=== PATIENT | male | born 1980 | race Caucasian/White ===

== ENCOUNTER 2017-01-15 13:02 | Emergency (ER) | payer BC ==
--- NOTE | 2017-01-15 13:33 | ED ---
Abdominal Pain HPI - General Chief Complaint: Abdominal Pain Stated Complaint: abdominal pain-sent by Urgent Care Time Seen by Provider: 01/15/17 13:15 Source: patient, RN notes reviewed Mode of arrival: ambulatory - History of Present Illness Initial Comments: Chief complaint and history of present illness is a 36-year-old male was coming here after being seen at the urgent care clinic. The patient reports yesterday developed some abdominal cramping and spasm started in the epigastric region and go down to the lower abdomen. No nausea no vomiting no diarrhea. He has taken Pepto-Bismol. Stool has become dark since taking the Pepto. Patient has a past history of irritable bowel syndrome. Also GERD. Surgeries include appendectomy. - Related Data Previous Rx's Medication Instructions Recorded Hyoscyamine Sulfate [Levsin] 0.125 mg PO QID PRN #20 tablet 01/15/17 Allergies Allergy/AdvReac Type Severity Reaction Status Date / Time No Known Allergies Allergy Verified 01/15/17 13:36 Review of Systems ROS Statement: Those systems with pertinent positive or pertinent negative responses have been documented in the HPI. Review of systems. No headache chest pain shortness of breath GI/ problems this time. The patient has noted above has had some abdominal cramping or spasms as he describes it. Starts in the epigastric region and goes down the lower abdomen. He has had normal bowel movements no trouble urinating. He reports this started after having had pizza 2 nights ago. Past medical problems significant for irritable bowel syndrome for the past 10-15 years. GERD. Surgeries appendectomy. Family history father of an [place] of only 42. Mother has had story for strokes. Patient has no ALLERGIES she does smoke medical marijuana which she reports makes him feel significantly better once or twice per week. He quit smoking cigarettes 2 years ago. Denies alcohol use. 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 Which would've been 3 days ago. ROS Other: All systems not noted in ROS Statement are negative. Past Medical History Past Medical History: GERD/Reflux Additional Past Medical History / Comment(s): IBS, liver hematoma dx last spring History of Any Multi-Drug Resistant Organisms: None Reported Past Surgical History: Appendectomy Past Psychological History: No Psychological Hx Reported Smoking Status: Never smoker Past Alcohol Use History: None Reported Past Drug Use History: Marijuana General Exam - General Exam Comments Initial Comments: General: The patient is awake and alert, in no distress, and does not appear acutely ill. Complains of on-again off-againintermittent abdominal spasms. 3-4 per hour yesterday less than one time per hour today. Vital signs showed a temperature 97.6 pulse 74 story rate 18 pulse ox on percent room air blood pressure 144/84. Elevated systolic diastolic noted. The patient was advised to talk to his family physician and get rechecked within the next 1-4 weeks.Eye: Pupils are equal, round and reactive to light, extra-ocular movements are intact ; there is normal conjunctiva bilaterally. No signs of icterus. Ears, nose, mouth and throat: There are moist mucous membranes and no oral lesions. Neck: The neck is supple, there is no tenderness , no anterior cervical lymphadenopathy. Cardiovascular: There is a regular rate and rhythm. No murmur, rub or gallop is appreciated. Respiratory: Lungs are clear to auscultation, respirations are non-labored, breath sounds are equal. No wheezes, stridor, rales, or rhonchi. Gastrointestinal: Soft, non-distended, slight to minimal tenderness to lower abdomen without masses or organomegaly noted. There is no rebound or guarding present. No CVA tenderness. Bowel sounds are unremarkable. Denying any spasms at this time. Back: No complaint of any back pain. Musculoskeletal: Normal ROM, no tenderness, There is no pedal edema. There is no calf tenderness or swelling. Sensation intact. Pulses equal bilaterally 2+. Neurological: No evidence of a complaints of any neuro deficits. No numbness no tingling. Skin: Skin is warm and dry patient denies any rashes. Course Vital Signs 01/15/17 13:11 Temperature 97.6 F Pulse Rate 74 Respiratory 18 Rate Blood Pressure 144/84 O2 Sat by Pulse 100 Oximetry Medical Decision Making - Medical Decision Making Medical decision making; EKG was done and reviewed at 1341 showing normal sinus rhythm no acute ST elevation no ectopy no ischemic changes. Rate 72 eye was 114 QRS is 98 QT 376 and a QTc of 411. Dr. Casey The patient's white count is 9.1 hemoglobin 18 hematocrit of 52. The patient will be advised to have these numbers repeated. If it remains high and advised to follow-up with family physician possible homoeopath for further evaluation. Potassium is 4.3 with a BUN of 11 creatinine 0.8 GFR greater than 60. Urine is clean no signs of infection. Amylase lipase within normal limits. , X-rays of the abdomen were done and reviewed by radiologist, his impression is; there is some possibility of bowel gas. The visualized gas is noted in the nondistended small and large bowel loops as well is nondistended stomach. Occasional pelvic phleboliths seen. Lung bases are clear. No pneumoperitoneum identified. Visualized osseous structures are intact. Impression; overall a nonspecific favor nonobstructive bowel gas pattern. As read by Dr. betancur The patient was given one tablet of Levsin emergency room. He was told to call follow-up with his family physician concerning his hemoglobin. Told increase his fluids. Use Levsin one every 12 hours when necessary abdominal cramps. Stay away from foods that tend to irritate his stomach historically. Return emergency room as needed - Lab Data Result diagrams: 01/15/17 13:34 01/15/17 13:34 Lab Results 01/15/17 01/15/17 01/15/17 Range/Units 13:34 13:34 13:34 WBC 9.1 (3.8-10.6) k/uL RBC 6.26 H (4.30-5.90) m/uL Hgb 18.0 H (13.0-17.5) gm/dL Hct 52.6 (39.0-53.0) % MCV 84.0 (80.0-100.0) fL MCH 28.7 (25.0-35.0) pg MCHC 34.2 (31.0-37.0) g/dL RDW 12.7 (11.5-15.5) % Plt Count 244 (150-450) k/uL Neutrophils % 65 % Lymphocytes % 25 % Monocytes % 5 % Eosinophils % 1 % Basophils % 2 % Neutrophils # 5.9 (1.3-7.7) k/uL Lymphocytes # 2.2 (1.0-4.8) k/uL Monocytes # 0.5 (0-1.0) k/uL Eosinophils # 0.1 (0-0.7) k/uL Basophils # 0.2 (0-0.2) k/uL Sodium 142 (137-145) mmol/L Potassium 4.3 (3.5-5.1) mmol/L Chloride 101 (98-107) mmol/L Carbon Dioxide 29 (22-30) mmol/L Anion Gap 12 mmol/L BUN 11 (9-20) mg/dL Creatinine 0.80 (0.66-1.25) mg/dL Est GFR (MDRD) Af Amer >60 (>60 ml/min/1.73 sqM) Est GFR (MDRD) Non-Af >60 (>60 ml/min/1.73 sqM) Glucose 89 (74-99) mg/dL Calcium 9.8 (8.4-10.2) mg/dL Total Bilirubin 1.0 (0.2-1.3) mg/dL AST 21 (17-59) U/L ALT 40 (21-72) U/L Alkaline Phosphatase 72 (38-126) U/L Total Protein 8.4 H (6.3-8.2) g/dL Albumin 5.0 (3.5-5.0) g/dL Amylase 74 (30-110) U/L Lipase 56 (23-300) U/L Urine Color Yellow Urine Appearance Clear (Clear) Urine pH 5.5 (5.0-8.0) Ur Specific [place] 1.020 (1.001-1.035) Urine Protein Negative (Negative) Urine Glucose (UA) Negative (Negative) Urine Ketones Negative (Negative) Urine Blood Negative (Negative) Urine Nitrate Negative (Negative) Urine Bilirubin Negative (Negative) Urine Urobilinogen <2.0 (<2.0) mg/dL Ur Leukocyte Esterase Negative (Negative) Disposition Clinical Impression: Irritable bowel syndrome without diarrhea Disposition: HOME SELF-CARE Condition: Fair Instructions: Irritable Bowel Syndrome (ED) Additional Instructions: Stay on proper diet. Follow-up with your family physician concerning elevated hemoglobin hematocrit. Suggested to get a repeat blood test in this matter. As well as getting a blood pressure rechecked several times this week at approximately the same time to make sure he don't fact have early hypertension. Take Levsin as directed Prescriptions: Hyoscyamine Sulfate [Levsin] 0.125 mg PO QID PRN #20 tablet PRN Reason: Abdominal cramps Time of Disposition: 14:31
[2017-01-15 13:54] LABS: Appearance,Urine Clear (Clear); Bilirubin,Urine Negative (Negative); Glucose,Urine (UA) Negative (Negative); Ketones,Urine Negative (Negative); Leukocyte Esterase,Urine Negative (Negative); Nitrite,Urine Negative (Negative); PH, Urine 5.5 (5.0-8.0); Protein,Urine Negative (Negative); UA Billing (MACRO vs. MICRO) CHEM; Urobilinogen,Urine <2.0 mg/dL (<2.0)
[2017-01-15 13:57] LABS: Basophils # (A) 0.2 k/uL (0-0.2); Basophils % (A) 2 %; CH 29.8; CHCM 35.6; Eosinophils # (A) 0.1 k/uL (0-0.7); Eosinophils % (A) 1 %; HCT 52.6 % (39.0-53.0); HDW 2.71; Luc # (Auto) 0.29; Luc % (Auto) 3; Lymphocytes # (A) 2.2 k/uL (1.0-4.8); Lymphocytes % (A) 25 %; MCH 28.7 pg (25.0-35.0); MCHC 34.2 g/dL (31.0-37.0); Mean Platelet Volume 6.9; Monocytes # (A) 0.5 k/uL (0-1.0); Monocytes % (A) 5 %; Neutrophils # (A) 5.9 k/uL (1.3-7.7); Neutrophils % (A) 65 %; RBC 6.26 m/uL (4.30-5.90); RDW 12.7 % (11.5-15.5); WBC 9.1 k/uL (3.8-10.6); WBC (Perox) 9.13
[2017-01-15 14:07] LABS: ALT 40 U/L (21-72); AST 21 U/L (17-59); Alkaline Phosphatase 72 U/L (38-126); Amylase 74 U/L (30-110); Anion Gap 12 mmol/L; Blood Urea Nitrogen 11 mg/dL (9-20); Calcium 9.8 mg/dL (8.4-10.2); Carbon Dioxide 29 mmol/L (22-30); Chloride 101 mmol/L (98-107); Glucose 89 mg/dL (74-99); Non-African American GFR(MDRD) >60 (>60 ml/min/1.73 sqM); Potassium 4.3 mmol/L (3.5-5.1); Sodium 142 mmol/L (137-145); Total Protein 8.4 g/dL (6.3-8.2)
--- NOTE | 2017-01-15 14:24 | XR ---
EXAMINATION TYPE: XR abdomen 2V DATE OF EXAM: 01/15/2017 2:12 PM CLINICAL HISTORY: Abdominal pain not further specified TECHNIQUE: Supine and upright views of the abdomen are obtained. COMPARISON: None. FINDINGS: There is some paucity of bowel gas. Visualized gas is noted in nondistended small and larg e bowel loops as well as nondistended stomach. Occasional pelvic phlebolith is seen. Lung bases are c lear. No pneumoperitoneum is identified. Visualized osseous structures are intact. IMPRESSION: Overall nonspecific favor nonobstructive bowel gas pattern.
[2017-01-15] MEDS ORDERED: HYOSCYAMINE SULFATE 0.125 MG TAB PO STA (14:25)
[2017-01-15 14:41] VITALS: BP 133/76; PULSE 69; RESP 16; TEMP 97.1
== END 2017-01-15 14:45 | disposition home or self-care (01) ==
LOC: EC 13:02
DX: K58.9 Irritable bowel syndrome, unspecified (principal); K21.9 Gastro-esophageal reflux disease without esophagitis; Z87.19 Personal history of other diseases of the digestive system; Z90.49 Acquired absence of other specified parts of digestive tract
CPT/HCPCS: 36415; 74020; 80053; 81003; 82150; 83690; 85025; 93005; 99284

== ENCOUNTER 2020-07-07 10:56 | Day surgery (SDC) | payer BC, OTHER ==
[2020-07-06 08:13] VITALS: BMI 25.1
[2020-07-07] MEDS ORDERED: LIDOCAINE 1% (10MG/ML) FOR IV START INTRADERMA PRN (11:04)
[2020-07-07] MEDS ORDERED: LACTATED RINGERS 1,000 ML IV SCH (11:04)
[2020-07-07 11:10] VITALS: TEMP 97.5
[2020-07-07] MEDS ORDERED: LACTATED RINGERS 1,000 ML IV ONE (11:14)
[2020-07-07] MEDS ORDERED: PROPOFOL 10 MG/ML 20 ML VIAL IV ONE (13:17)
--- NOTE | 2020-07-07 13:40 | P.PCN ---
Date of Procedure: 07/07/20 Description of Procedure: BRIEF HISTORY: Patient is a 39-year-old male presenting for outpatient EGD for evaluation of GERD. Patient reports symptoms of reflux for which she takes intermittent use of antacids. He has also been having some globus. PROCEDURE PERFORMED: Esophagogastroduodenoscopy with biopsy. PREOPERATIVE DIAGNOSIS: GERD. ESTIMATED BLOOD LOSS: Minimal. IV sedation per anesthesia. PROCEDURE: After informed consent was obtained, the patient was brought into the endoscopy unit. IV sedation was administered by Anesthesia under continuous monitoring. Initially the Olympus GIF-190 video endoscope was inserted into the mouth. Esophagus intubated without any difficulty. It was gradually advanced into the stomach and duodenum and carefully examined. The bulb and the second part of the duodenum appeared normal, with biopsies taken. The scope at this time was withdrawn to the stomach, adequately insufflated with air, and upon careful examination, mucosa of the antrum, body, cardia and the fundus appeared normal, except for some mild punctate erythema in the antrum and body suggestive of mild gastritis with biopsies taken. The scope was then withdrawn into the esophagus. The GE junction was located at 37 cm from the incisors, with biopsies taken. The esophagus appeared normal, with mid esophageal biopsies taken to rule out eosinophilic esophagitis. There were no erosions or ulcerations seen and the patient tolerated the procedure well. IMPRESSION: 1. Mild Gastritis. 2. Biopsies of the duodenum, antrum and body, GE junction and mid esophagus. RECOMMENDATIONS: The findings of this examination were discussed with the patient and his girlf tara. Okay to resume diet. Okay to resume medications. Await pathology from biopsies. Continue symptomatic treatment of reflux.
[2020-07-07 13:47] VITALS: RESP 16
[2020-07-07 13:58] VITALS: BP 124/81; PULSE 60
== END 2020-07-07 14:13 | disposition home or self-care (01) ==
LOC: ORWHC2ENDO 10:56
PROVIDERS: ATTEND Internal Medicine
DX: K21.0 Gastro-esophageal reflux disease with esophagitis (principal); K29.50 Unspecified chronic gastritis without bleeding; F45.8 Other somatoform disorders; F17.290 Nicotine dependence, other tobacco product, uncomplicated; E78.5 Hyperlipidemia, unspecified; K58.9 Irritable bowel syndrome, unspecified; Z79.1 Long term (current) use of non-steroidal anti-inflammatories (NSAID); Z79.899 Other long term (current) drug therapy; Z90.49 Acquired absence of other specified parts of digestive tract; Z98.890 Other specified postprocedural states; Z86.69 Personal history of other diseases of the nervous system and sense organs; Z98.811 Dental restoration status
CPT/HCPCS: 43239; 88305; J2704